=== PATIENT | male | born 1995 | race Caucasian/White ===

== ENCOUNTER 2016-05-26 08:46 | Outpatient (CLI) | payer BC | END 2016-05-26 23:59 | DX: N39.0 Urinary tract infection, site not specified (principal); Z11.3 Encounter for screening for infections with a predominantly sexual mode of transmission ==

== ENCOUNTER 2017-01-25 21:17 | Outpatient (CLI) | payer OTHER, BC | END 2017-01-25 21:18 | disposition EMS.NT | LOC: EMS 21:17 | PROVIDERS: ATTEND Surgery | DX: R51 Headache (principal); V48.5XXA Car driver injured in noncollision transport accident in traffic accident, initial encounter; Y92.413 State road as the place of occurrence of the external cause ==

== ENCOUNTER 2017-01-25 22:06 | Emergency (ER) | payer OTHER, BC ==
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
[2017-01-25] MEDS ORDERED: ACETAMINOPHEN 325 MG TABLET PO STA (22:32)
[2017-01-25] MEDS ORDERED: TETANUS/DIPHTHERIA/PERTUSSIS 0.5 ML SYRINGE IM ONE ×2 (22:32→23:06)
[2017-01-25] MEDS ORDERED: ACETAMINOPHEN 325 MG TABLET PO ONE (23:06)
--- NOTE | 2017-01-25 23:20 | CT Preliminary Report ---
Exam: CT HEAD W/O IMPRESSION: There is a small, well-circumscribed region of CSF density within the right frontal lobe white matter, this likely represents a prominent perivascular space, typically of no clinical signifi cance.. There is an area of cortical and subcortical hypodensity involving the left inferior frontal gyrus, t his measures at most 2 cm in diameter. Given the clinical history, this may represent a nonhemorrhagi c contusion. RADIA The above findings were discussed with Dr. Hsieh by Dr. Yash Esteban at 23:18 hrs on 01/25/17. SITE ID: [id number]
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
[2017-01-25] MEDS ORDERED: IBUPROFEN 600 MG TABLET PO STA (23:37)
[2017-01-25 23:47] VITALS: BP 156/90
== END 2017-01-25 23:46 | disposition home or self-care (01) ==
LOC: ED 22:06
DX: S01.01XA Laceration without foreign body of scalp, initial encounter (principal); V47.5XXA Car driver injured in collision with fixed or stationary object in traffic accident, initial encounter; Y92.410 Unspecified street and highway as the place of occurrence of the external cause; Z23 Encounter for immunization; E10.9 Type 1 diabetes mellitus without complications
CPT/HCPCS: 12002; 70450; 90471; 90715; 99283; 99284; A9270

== ENCOUNTER 2018-09-25 23:53 | Emergency (ER) | payer BC ==
--- NOTE | 2018-09-26 00:43 | XRAY Report ---
Reason: GLF, pain with ROM Procedure Date: 09/26/2018 Accession Number: [id number] / [id number] Procedure: XR - Wrist 4 View LT CPT Code: FULL RESULT: EXAM: LEFT WRIST RADIOGRAPHY EXAM DATE: 09/26/2018 12:19 AM. CLINICAL HISTORY: Ground level fall, pain with range of motion. COMPARISON: None. TECHNIQUE: 4 views. FINDINGS: Bones and joints: Scaphoid appears at least subluxed with abnormal articulation with the lunate and possibly distally as well. No fracture is visualized in the wrist. Soft Tissues: Soft tissue swelling. IMPRESSION: Scaphoid appears at least subluxed with abnormal articulation with the lunate and possibly distally as well. No fracture is visualized in the wrist. RADIA ADDENDUM: 09/26/18 02:35 Nondisplaced fracture of the radial styloid seen on CT is barely visualized in retrospect on plain film.
--- NOTE | 2018-09-26 01:20 | ED Physician Documentation ---
PD HPI UPPER EXT INJURY - Stated complaint Stated Complaint: HAND INJ - Chief complaint Chief Complaint: Ext Problem - History obtained from History obtained from: Patient - History of Present Illness Location: Left, Wrist Type of injury: Fall Timing - onset: Enter time (19:00), Today Timing - details: Abrupt onset Pain level now: 2 Improved by: Rest, Immobilization Worsened by: Moving, Palpating Associated symptoms: Swelling. No: Weakness, Numbness Similar symptoms before: Has not had sx before Recently seen: Not recently seen - Additonal information Additional information: at approximately 7 PM tonight, patient fell off pogo stick; he fell onto outstretched left upper extremity and c/o sudden onset left wrist pain. He is left hand dominant. Review of Systems Skin: denies: Abrasion (s), Laceration (s) Musculoskeletal: reports: Joint pain, Joint swelling. denies: Neck pain, Back pain Neurologic: denies: Focal weakness, Numbness PD PAST MEDICAL HISTORY - Past Medical History Past Medical History: Yes Cardiovascular: None Respiratory: None Neuro: None Endocrine/Autoimmune: Type 1 diabetes GI: None : None HEENT: None Psych: None Musculoskeletal: None Derm: None - Past Surgical History Past Surgical History: Yes - Present Medications Home Medications: Ambulatory Orders Medication Instructions Recorded Confirmed Insulin Aspart (Vial) [NovoLOG] 10 unit SUBQ ONCE 03/03/13 01/25/17 NIFEdipine [Procardia] 10 mg PO DAILY 09/26/18 09/26/18 - Allergies Allergies/Adverse Reactions: Allergies Allergy/AdvReac Type Severity Reaction Status Date / Time cephalexin monohydrate * Allergy Unknown Unknown Verified 09/26/18 00:02 [From Keflex] erythromycin ethylsuccinate * Allergy Unknown Unknown Verified 09/26/18 00:02 [From Pediazole] sulfisoxazole acetyl * Allergy Unknown Unknown Verified 09/26/18 00:02 [From Pediazole] - Social History Does the pt smoke?: No Smoking Status: Former smoker Does the pt drink ETOH?: No ETOH Use: Beer Does the pt have substance abuse?: No - Immunizations Immunizations are current?: Yes Immunizations: TDAP >10years/unknown - POLST Patient has POLST: No PD ED PE NORMAL - Vitals Vital signs reviewed: Yes - General General: Alert and oriented X 3, No acute distress, Well developed/nourished - Derm Derm: Normal color, Warm and dry - Neuro Neuro: No motor deficit, No sensory deficit PD ED PE EXPANDED - Extremities Extremities: Tenderness (mild tenderness to palpation left wrist, radial aspect), Limited ROM (left wrist), Swelling (left wrist), Sensory intact, Vascular intact. No: Deformity, Bruising, Abrasion, Laceration Results - Vitals Vitals: Vital Signs - 24 hr 09/25/18 09/26/18 23:59 03:37 Temperature 36.2 C L 36.5 C Heart Rate 106 H 111 H Respiratory 18 18 Rate Blood Pressure 162/94 H 147/85 H O2 Saturation 99 98 Oxygen O2 Source Room air - Rads (name of study) left wrist xrays Radiology: Prelim report reviewed, See rad report CT left wrist Radiology: Prelim report reviewed, See rad report Procedures - Splint (location) Upper extremity left Splint applied by: Tech Type of splint: Fiberglass, Short arm Other: Patient tolerated well, No complications, Neurovascular intact, Good alignment, Sling provided PD MEDICAL DECISION MAKING - ED course Complexity details: reviewed results, re-evaluated patient, considered differential, d/w patient ED course: xrays interpreted by radiologist as scaphoid abnormality in its articulation with lunate and possibly distally as well. I discussed this result with Dr. Schultz (talent acquisition consultant orthopedic surgery); he recommends CT scan and thus this was also performed. CT reveals no abnormality of carpal bones, but it also shows a nondisplaced intra-articular distal left radial epiphyseal fracture at the base of the radial styloid with minimal depression of the fracture. Departure - Departure Disposition: 01 Home, Self Care Clinical Impression: Distal radial fracture Condition: Good Instructions: ED Sling, ED Splint Care Fiberglass, ED Fx Wrist General Follow-Up: Gil Schultz MD [Provider Admit Priv/Credential] - Forms: Activity restrictions Discharge Date/Time: 09/26/18 03:38
--- NOTE | 2018-09-26 02:36 | CT Report ---
Reason: left wrist xrays abnormal Procedure Date: 09/26/2018 Accession Number: [id number] / [id number] Procedure: CT - UPPER EXTREMITY WO - LT CPT Code: FULL RESULT: EXAM: LEFT WRIST CT WITHOUT CONTRAST EXAM DATE: 09/26/2018 02:08 AM. CLINICAL HISTORY: Left wrist x-rays abnormal. Left wrist pain, injury. COMPARISON: WRIST 4 VIEW LT 09/26/2018 12:13 AM. TECHNIQUE: Thin-section axial images were acquired of the wrist without contrast. Post-processing: Coronal and sagittal reformats. Other: None. In accordance with CT protocol optimization, one or more of the following dose reduction techniques were utilized for this exam: automated exposure control, adjustment of mA and/or KV based on patient size, or use of iterative reconstructive technique. FINDINGS: Bones: Nondisplaced intra-articular distal left radial epiphyseal fracture at the base of the radial styloid. Minimal depression of the fracture. No other wrist fracture seen. Joints: No malalignment of the wrist. No scaphoid dislocation, presumably artifact on plain film unless relocating. Musculature: Normal. No fatty atrophy. Other: Swelling. IMPRESSION: 1. Nondisplaced intra-articular distal left radial epiphyseal fracture at the base of the radial styloid. 2. No malalignment the wrist. No scaphoid dislocation, presumably artifact on plain film unless relocated before CT. RADIA
[2018-09-26 03:38] VITALS: BP 147/85
== END 2018-09-26 03:38 | disposition home or self-care (01) ==
LOC: ED 23:53
DX: S52.572A Other intraarticular fracture of lower end of left radius, initial encounter for closed fracture (principal); W17.89XA Other fall from one level to another, initial encounter; Y93.89 Activity, other specified; E10.9 Type 1 diabetes mellitus without complications; Z79.4 Long term (current) use of insulin; Z87.891 Personal history of nicotine dependence
CPT/HCPCS: 29125; 99283; 99284

== ENCOUNTER 2019-07-09 19:06 | Emergency (ER) | payer BC ==
[2019-07-09] MEDS ORDERED: BUFFERED LIDOCAINE 10 ML SYRINGE SUBQ STA (19:19)
--- NOTE | 2019-07-09 19:20 | ED Physician Documentation ---
PD HPI UPPER EXT INJURY - Stated complaint Stated Complaint: RT PINKY LAC - Chief complaint Chief Complaint: Laceration - History obtained from History obtained from: Patient (24-year-old gentleman was working on his truck and accidentally cut his right pinky finger with a telephone coin box collector at home just prior to arrival. Tetanus is up-to-date. No other injuries.) Review of Systems Constitutional: reports: Reviewed and negative Eyes: reports: Reviewed and negative Respiratory: reports: Reviewed and negative PD PAST MEDICAL HISTORY - Past Medical History Cardiovascular: None Respiratory: None Neuro: None Endocrine/Autoimmune: Type 1 diabetes GI: None : None HEENT: None Psych: None Musculoskeletal: None Derm: None - Past Surgical History Past Surgical History: Yes - Present Medications Home Medications: Ambulatory Orders Medication Instructions Recorded Confirmed Insulin Aspart (Vial) [NovoLOG] 10 unit SUBQ ONCE 03/03/13 01/25/17 NIFEdipine [Procardia] 10 mg PO DAILY 09/26/18 09/26/18 - Allergies Allergies/Adverse Reactions: Allergies Allergy/AdvReac Type Severity Reaction Status Date / Time cephalexin monohydrate * Allergy Unknown Unknown Verified 07/09/19 19:14 [From Keflex] erythromycin ethylsuccinate * Allergy Unknown Unknown Verified 07/09/19 19:14 [From Pediazole] sulfisoxazole acetyl * Allergy Unknown Unknown Verified 07/09/19 19:14 [From Pediazole] - Social History Does the pt smoke?: No Smoking Status: Former smoker Does the pt drink ETOH?: No Does the pt have substance abuse?: No - Immunizations Immunizations are current?: Yes Immunizations: TDAP >10years/unknown - POLST Patient has POLST: No PD ED PE NORMAL - Vitals Vital signs reviewed: Yes - General General: Alert and oriented X 3, No acute distress - Extremities Extremities: Other (On the palmar side of the right pinky finger there is a 1 cm laceration just distal to the DIP joint. Flexor tendon strength is normal, normal sensation and cap refill of the tip.) - Neuro Neuro: Alert and oriented X 3, Normal speech Results - Vitals Vitals: Vital Signs - 24 hr 07/09/19 19:11 Temperature 36.5 C Oxygen O2 Source Room air Procedures - Laceration (location) R pinky Length in cm: 1 Wound type: Linear Neurovascular status: Sensory intact, Motor intact, Vascular intact Anesthesia: Lidocaine 1%, With bicarb (digitial block) Wound Preparation: Chlorhexadine, Irrigated copiously NS Skin layer closure: Nylon, Size #-0 - enter number (5-0), Sutures - enter # (4) Other: Tetanus UTD Complexity: Simple Departure - Departure Disposition: 01 Home, Self Care Clinical Impression: Laceration of right little finger Qualifiers: Encounter type: initial encounter Damage to nail status: without damage Foreign body presence: without foreign body Qualified Code(s): S61.216A - Laceration without foreign body of right little finger without damage to nail, initial encounter Condition: Good Record reviewed to determine appropriate education?: Yes Instructions: ED Laceration Hand Comments: Come back for any signs of infection which would include: Redness, swelling, drainage, increased pain, or fevers. You can wash it soap and water. Keep it covered and moist with bacitracin ointment which is available over the counter; avoid neosporin. Follow-up with your physician in 10-14 days for suture removal.
[2019-07-09] MEDS ORDERED: BACITRACIN ZINC OINT 1 PACKET TOP STA (19:45)
[2019-07-09] MEDS ORDERED: BACITRACIN ZINC OINT 1 PACKET TOP ONE (19:47)
== END 2019-07-09 19:52 | disposition home or self-care (01) ==
LOC: ED 19:06
DX: S61.216A Laceration without foreign body of right little finger without damage to nail, initial encounter (principal); W27.8XXA Contact with other nonpowered hand tool, initial encounter; Y93.89 Activity, other specified; Y99.8 Other external cause status; Z87.891 Personal history of nicotine dependence
CPT/HCPCS: 12001; 99281; 99282; A9270

== ENCOUNTER 2019-08-14 18:03 | Emergency (ER) | payer BC ==
[2019-08-14 18:14] VITALS: BP 158/97
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
[2019-08-14] MEDS ORDERED: BACITRACIN ZINC OINT 1 PACKET TOP STA (19:08)
== END 2019-08-14 19:35 | disposition home or self-care (01) ==
LOC: ED 18:03
DX: S70.312A Abrasion, left thigh, initial encounter (principal); S30.810A Abrasion of lower back and pelvis, initial encounter; V28.0XXA Motorcycle driver injured in noncollision transport accident in nontraffic accident, initial encounter; Y92.410 Unspecified street and highway as the place of occurrence of the external cause; E10.9 Type 1 diabetes mellitus without complications
CPT/HCPCS: 99282

== ENCOUNTER 2020-12-31 09:46 | Outpatient (CLI) | payer BC | END 2020-12-31 09:47 | disposition EMS.NT | LOC: EMS 09:46 | DX: R56.9 Unspecified convulsions (principal) ==

== ENCOUNTER 2020-12-31 10:44 | Emergency (ER) | payer BC ==
[2020-12-31 11:21] LABS: BASOPHILS # (AUTO) 0.1 10^3/uL (0.0-0.1); BASOPHILS % (AUTO) 0.9 %; EOSINOPHILS # (AUTO) 0.1 10^3/uL (0.0-0.7); EOSINOPHILS % (AUTO) 1.4 %; HCT - HEMATOCRIT 48.5 % (42.0-52.0); HGB - HEMOGLOBIN 16.5 g/dL (14.0-18.0); LYMPHOCYTES # (AUTO) 0.8 10^3/uL (1.5-3.5); LYMPHOCYTES % (AUTO) 11.8 %; MEAN CORPUSCULAR HEMOGLOBIN 31.7 pg (27.0-31.0); MEAN CORPUSCULAR VOLUME 93.3 fL (80.0-94.0); MEAN PLATELET VOLUME 8.7 fL (7.4-11.4); MONOCYTES # (AUTO) 0.6 10^3/uL (0.0-1.0); NEUTROPHILS # (AUTO) 4.9 10^3/uL (1.5-6.6); NEUTROPHILS % (AUTO) 75.1 %; PLT - PLATELET COUNT 207 10^3/uL (130-450); RED CELL DISTRIBUTION WIDTH 12.4 % (12.0-15.0); WHITE BLOOD COUNT 6.5 x10^3/uL (4.8-10.8)
[2020-12-31 11:31] LABS: ALBUMIN 4.4 g/dL (3.2-5.5); BILIRUBIN,TOTAL 1.2 mg/dL (0.2-1.0); CALCIUM 9.3 mg/dL (8.5-10.3); CREATININE 0.9 mg/dL (0.6-1.2); POTASSIUM 4.4 mmol/L (3.5-5.0); TOTAL PROTEIN 8.6 g/dL (6.7-8.2)
[2020-12-31 11:37] LABS: BILIRUBIN,URINE NEGATIVE (NEGATIVE); GLUCOSE, URINE (UA) NEGATIVE (NEGATIVE); KETONES,URINE (UA) TRACE mg/dL (NEGATIVE); LEUKOCYTE ESTERASE, URINE NEGATIVE (NEGATIVE); NITRITE,URINE NEGATIVE (NEGATIVE); OCCULT BLOOD,URINE SMALL (NEGATIVE); PROTEIN,URINE TRACE mg/dL (NEGATIVE); UROBILINOGEN,URINE 0.2 (NORMAL) E.U./dL (NORMAL)
[2020-12-31 11:42] LABS: BACTERIA,URINE None Seen /HPF (None Seen); CLARITY,URINE CLEAR (CLEAR); RBC,URINE 0-5 /HPF (0-5); SQUAMOUS EPITHELIAL CELL,UR NONE SEEN (<= Few); WBC,URINE 0-3 /HPF (0-3)
[2020-12-31] MEDS ORDERED: LORazepam 2 MG/ML VIAL ONE (11:46)
[2020-12-31] MEDS ORDERED: LORazepam 2 MG/ML VIAL IVP STA (11:47)
[2020-12-31] MEDS ORDERED: THIAMINE INJ 100 MG, MAGNESIUM SULFATE 2 GM, MULTIVITAMIN 10 ML in SODIUM CHLORIDE 0.9%... IV ONE (11:49)
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
[2020-12-31 11:54] LABS: MUDS CUTOFF CONCENTRATIONS CUTOFF CONC BELOW:
[2020-12-31 12:06] LABS: AMPHETAMINE SCREEN,URINE NEGATIVE (NEGATIVE); BARBITURATE SCREEN,UR NEGATIVE (NEGATIVE); BENZODIAZEPINES SCREEN, URINE NEGATIVE (NEGATIVE); COCAINE SCREEN URINE NEGATIVE (NEGATIVE); METHADONE SCREEN, URINE NEGATIVE (NEGATIVE); METHAMPHETAMINES SCREEN, URINE NEGATIVE (NEGATIVE); OPIATE SCREEN, URINE NEGATIVE (NEGATIVE); OXYCODONE SCREEN, URINE NEGATIVE (NEGATIVE); PROPOXYPHENE SCREEN, URINE NEGATIVE (NEGATIVE); THC CANNABINOID SCREEN, URINE NEGATIVE (NEGATIVE); TRICYCLIC ANTIDEPRESSANT,URINE NEGATIVE (NEGATIVE)
--- NOTE | 2020-12-31 12:48 | CT Report ---
PROCEDURE: HEAD WO INDICATIONS: Seizure TECHNIQUE: Noncontrast 4.5 mm thick angled axial sections acquired from the foramen magnum to the vertex. For r adiation dose reduction, the following was used: automated exposure control, adjustment of mA and/or kV according to patient size. COMPARISON: None. FINDINGS: BRAIN PARENCHYMA: 2.7 cm slightly hypoattenuating mass in the left frontoparietal region with surroun ding vasogenic edema. 1 cm hypoattenuating area in the right stearns radiata, which may reflect prior infarct or prominent p erivascular space. No acute intracranial hemorrhage or abnormal fluid collection. The density in the larger dural venous sinuses is grossly normal. VENTRICLES: Effacement of the left frontal horn. BONES/SINUSES: The skull base and calvarium demonstrate no acute abnormality. The paranasal sinuses a nd mastoid air cells are well aerated. 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 Consider postcontrast magnetic resonance imaging for further evaluation as well as patient's medical history. Reviewed by: Murphy Adkins MD on 12/31/2020 12:46 PM PDT Approved by: Murphy Adkins MD on 12/31/2020 12:46 PM PDT Station ID: [id number]
--- NOTE | 2020-12-31 12:55 | XRAY Report ---
PROCEDURE: Shoulder 3 View LT INDICATIONS: seizure shoulder pain TECHNIQUE: 3 views of the shoulder were acquired. COMPARISON: None. FINDINGS: BONES: No acute, displaced fracture or dislocation. The glenohumeral and acromioclavicular joint spac es are maintained. SOFT TISSUES: No focal abnormality or appreciable pneumothorax. IMPRESSION: 1.No acute osseous abnormality. Reviewed by: Murphy Adkins MD on 12/31/2020 12:53 PM PDT Approved by: Murphy Adkins MD on 12/31/2020 12:53 PM PDT Station ID: [id number]
[2020-12-31] MEDS ORDERED: levETIRAcetam INJ 500 MG in SODIUM CHLORIDE 0.9% 100ML 100 ML IV STA (13:55)
[2020-12-31] MEDS ORDERED: DEXAMETHASONE 10 MG/ML VIAL IVP STA (13:55)
[2020-12-31] MEDS ORDERED: KETOROLAC 30 MG/ML VIAL IVP STA (14:13)
[2020-12-31 18:12] VITALS: BP 156/90
== END 2020-12-31 20:50 | disposition short-term general hospital (02) ==
LOC: ED 10:44
DX: S01.552A Open bite of oral cavity, initial encounter (principal); S46.912A Strain of unspecified muscle, fascia and tendon at shoulder and upper arm level, left arm, initial encounter; X58.XXXA Exposure to other specified factors, initial encounter; R22.0 Localized swelling, mass and lump, head; R56.9 Unspecified convulsions; E10.9 Type 1 diabetes mellitus without complications; Z79.4 Long term (current) use of insulin; Z20.822 Contact with and (suspected) exposure to COVID-19
CPT/HCPCS: 36415; 70450; 73030; 80053; 80306; 80320; 81001; 83690; 85025; 87635; 96365; 96367; 96375; 99285; J2060; J3411; 81003; 87086

== ENCOUNTER 2020-12-31 20:43 | Outpatient (CLI) | payer BC | END 2020-12-31 20:44 | disposition short-term general hospital (02) | LOC: EMS 20:43 | PROVIDERS: ATTEND Emergency Medicine | DX: D49.6 Neoplasm of unspecified behavior of brain (principal); R56.9 Unspecified convulsions | CPT/HCPCS: A0425; A0428 ==

== ENCOUNTER 2021-07-22 12:07 | Outpatient (CLI) | payer OTHER | END 2021-07-22 12:08 | disposition critical access hospital (66) | LOC: EMS 12:07 | DX: R56.9 Unspecified convulsions (principal); M25.512 Pain in left shoulder; W07.XXXA Fall from chair, initial encounter; Y92.009 Unspecified place in unspecified non-institutional (private) residence as the place of occurrence of the external cause | CPT/HCPCS: A0425; A0427 ==

== ENCOUNTER 2021-07-22 12:08 | Emergency (ER) | payer BC, OTHER ==
[2021-07-22] MEDS ORDERED: SODIUM CHLORIDE 0.9% 1,000 ML IV STA (12:27)
[2021-07-22 12:41] LABS: BASOPHILS % (AUTO) 0.8 %; EOSINOPHILS # (AUTO) 0.2 10^3/uL (0.0-0.7); EOSINOPHILS % (AUTO) 3.6 %; HCT - HEMATOCRIT 45.6 % (42.0-52.0); HGB - HEMOGLOBIN 16.2 g/dL (14.0-18.0); LYMPHOCYTES # (AUTO) 0.6 10^3/uL (1.5-3.5); LYMPHOCYTES % (AUTO) 11.5 %; MEAN CORPUSCULAR HEMOGLOBIN 31.5 pg (27.0-31.0); MEAN CORPUSCULAR HGB CONC 35.5 g/dL (32.0-36.0); MEAN CORPUSCULAR VOLUME 88.5 fL (80.0-94.0); MONOCYTES # (AUTO) 0.6 10^3/uL (0.0-1.0); MONOCYTES % (AUTO) 12.5 %; NEUTROPHILS # (AUTO) 3.6 10^3/uL (1.5-6.6); PLT - PLATELET COUNT 204 10^3/uL (130-450); RED BLOOD COUNT 5.15 10^6/uL (4.70-6.10); RED CELL DISTRIBUTION WIDTH 13.5 % (12.0-15.0)
[2021-07-22 12:52] LABS: LACTIC ACID, VENOUS 2.4 mmol/L (0.5-2.2)
[2021-07-22 12:53] LABS: ALBUMIN 4.5 g/dL (3.2-5.5); ALBUMIN/GLOBULIN RATIO 1.5 (1.0-2.2); BILIRUBIN,TOTAL 0.7 mg/dL (0.2-1.0); CALCIUM 9.6 mg/dL (8.5-10.3); CREATININE 0.9 mg/dL (0.6-1.2); POTASSIUM 5.4 mmol/L (3.5-5.0); TOTAL PROTEIN 7.5 g/dL (6.7-8.2)
[2021-07-22] MEDS ORDERED: levETIRAcetam INJ 1,000 MG in SODIUM CHLORIDE 0.9% 100ML 100 ML IV STA (13:01)
[2021-07-22 13:03] LABS: BILIRUBIN,URINE NEGATIVE (NEGATIVE); GLUCOSE, URINE (UA) >=1000 mg/dL (NEGATIVE); KETONES,URINE (UA) TRACE mg/dL (NEGATIVE); LEUKOCYTE ESTERASE, URINE NEGATIVE (NEGATIVE); NITRITE,URINE NEGATIVE (NEGATIVE); OCCULT BLOOD,URINE TRACE-INTA (NEGATIVE); PH,URINE 6.5 PH (5.0-7.5); PROTEIN,URINE TRACE mg/dL (NEGATIVE); UROBILINOGEN,URINE 0.2 (NORMAL) E.U./dL (NORMAL)
--- NOTE | 2021-07-22 13:03 | ED Physician Documentation ---
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 The patient recalls that he has not taken his keppra for the past 2 days. Feels like he just was feeling well and too busy and forgot. He indicates that he usually takes his medications on time and only misses a dose about once per month . Review of Systems Constitutional: denies: Fever Eyes: denies: Decreased vision Ears: denies: Ear pain Nose: denies: Rhinorrhea / runny nose, Congestion Throat: denies: Sore throat Cardiac: denies: Chest pain / pressure, Palpitations Respiratory: denies: Dyspnea, Cough GI: denies: Abdominal Pain, Nausea, Vomiting, Constipation, Diarrhea : denies: Dysuria, Frequency PD PAST MEDICAL HISTORY - Past Medical History Past Medical History: Yes Cardiovascular: None Respiratory: None Neuro: Seizure disorder Endocrine/Autoimmune: Type 1 diabetes GI: None : None HEENT: None Psych: None Musculoskeletal: None Derm: None - Past Surgical History Past Surgical History: Yes Neuro: Craniotomy - Present Medications Home Medications: Ambulatory Orders Medication Instructions Recorded Confirmed Insulin Aspart (Vial) [NovoLOG] 10 unit SUBQ ONCE 03/03/13 12/31/20 NIFEdipine [Procardia] 10 mg PO DAILY 09/26/18 09/26/18 - Allergies Allergies/Adverse Reactions: Allergies Allergy/AdvReac Type Severity Reaction Status Date / Time cephalexin monohydrate * Allergy Unknown Unknown Verified 07/22/21 12:21 [From Keflex] erythromycin ethylsuccinate * Allergy Unknown Unknown Verified 07/22/21 12:21 [From Pediazole] sulfisoxazole acetyl * Allergy Unknown Unknown Verified 07/22/21 12:21 [From Pediazole] - Social History Does the pt smoke?: No Smoking Status: Never smoker Does the pt drink ETOH?: No Does the pt have substance abuse?: No - Immunizations Immunizations are current?: Yes Immunizations: TDAP >10years/unknown - POLST Patient has POLST: No PD ED PE NORMAL - Vitals Vital signs reviewed: Yes (tachy and hypertensive) - General General: Alert and oriented X 3, No acute distress, Well developed/nourished - HEENT HEENT: Atraumatic, PERRL, EOMI, Ears normal, Pharynx benign, Dentition benign, Other (dry mucous membranes) - Neck Neck: Supple, no meningeal sign, No bony TTP - Cardiac Cardiac: No murmur, Other (tachy to 110) - Respiratory Respiratory: No respiratory distress, Clear bilaterally - Abdomen Abdomen: Soft, Non tender - Back Back: No CVA TTP, No spinal TTP - Derm Derm: Normal color, Warm and dry, No rash - Extremities Extremities: No deformity, No edema - Neuro Neuro: Alert and oriented X 3, 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, No motor deficit, No sensory deficit, Normal speech Eye Opening: Spontaneous Motor: Obeys Commands Verbal: Oriented GCS Score: 15 - Psych Psych: Normal mood, Normal affect Results - Vitals Vitals: Vital Signs - 24 hr 07/22/21 07/22/21 07/22/21 12:16 12:39 12:51 Temperature 38.2 C H 37.1 C 37.1 C Heart Rate 130 H 127 H Respiratory 22 20 Rate Blood Pressure 154/86 H 149/76 H O2 Saturation 99 100 07/22/21 07/22/21 07/22/21 13:21 13:30 14:00 Temperature 37.0 C Heart Rate 116 H 102 H 108 H Respiratory 16 18 23 Rate Blood Pressure 127/87 H 148/93 H 143/86 H O2 Saturation 100 100 100 Oxygen O2 Source Room air - Labs Labs: Laboratory Tests 07/22/21 07/22/21 07/22/21 12:35 12:35 12:38 WBC 5.0 RBC 5.15 Hgb 16.2 Hct 45.6 MCV 88.5 MCH 31.5 H MCHC 35.5 RDW 13.5 Plt Count 204 MPV 9.0 Neut # (Auto) 3.6 Lymph # (Auto) 0.6 L [place] # (Auto) 0.6 Eos # (Auto) 0.2 Baso # (Auto) 0.0 Absolute Nucleated RBC 0.00 Nucleated RBC % 0.0 Sodium 134 L Potassium 5.4 H Chloride 98 L Carbon Dioxide 23 Anion Gap 13.0 BUN 12 Creatinine 0.9 Estimated GFR (MDRD) 100 Glucose 302 H Lactic Acid 2.4 H Calcium 9.6 Total Bilirubin 0.7 AST 30 ALT 32 Alkaline Phosphatase 50 Total Protein 7.5 Albumin 4.5 Globulin 3.0 Albumin/Globulin Ratio 1.5 Urine Color Urine Clarity Urine pH Ur Specific [place] Urine Protein Urine Glucose (UA) Urine Ketones Urine Occult Blood Urine Nitrite Urine Bilirubin Urine Urobilinogen Ur Leukocyte Esterase Urine RBC Urine WBC Ur Squamous Epith Cells Urine Bacteria Urine Culture Comments Nasal Adenovirus (PCR) Nasal B. parapertussis DNA (PCR) Nasal Coronavir 229E PCR Nasal Coronavir HKU1 PCR Nasal Coronavir NL63 PCR Nasal Coronavir OC43 PCR Nasal Enterovir/Rhinovir PCR Nasal Influenza B PCR Nasal Influenza A PCR Nasal Parainfluen 1 PCR Nasal Parainfluen 2 PCR Nasal Parainfluen 3 PCR Nasal Parainfluen 4 PCR Nasal RSV (PCR) Nasal B.pertussis DNA PCR Nasal C.pneumoniae (PCR) Umair Human Metapneumo PCR Nasal M.pneumoniae (PCR) Nasal SARS-CoV-2 (PCR) 07/22/21 07/22/21 12:38 12:42 WBC RBC Hgb Hct MCV MCH MCHC RDW Plt Count MPV Neut # (Auto) Lymph # (Auto) [place] # (Auto) Eos # (Auto) Baso # (Auto) Absolute Nucleated RBC Nucleated RBC % Sodium Potassium Chloride Carbon Dioxide Anion Gap BUN Creatinine Estimated GFR (MDRD) Glucose Lactic Acid Calcium Total Bilirubin AST ALT Alkaline Phosphatase Total Protein Albumin Globulin Albumin/Globulin Ratio Urine Color YELLOW Urine Clarity CLEAR Urine pH 6.5 Ur Specific [place] 1.020 Urine Protein TRACE Urine Glucose (UA) >=1000 H Urine Ketones TRACE Urine Occult Blood TRACE-INTA Urine Nitrite NEGATIVE Urine Bilirubin NEGATIVE Urine Urobilinogen 0.2 (NORMAL) Ur Leukocyte Esterase NEGATIVE Urine RBC 0-5 Urine WBC 0-3 Ur Squamous Epith Cells NONE SEEN Urine Bacteria None Seen Urine Culture Comments NOT INDICATED Nasal Adenovirus (PCR) NOT DETECTED Nasal B. parapertussis DNA (PCR) NOT DETECTED Nasal Coronavir 229E PCR NOT DETECTED Nasal Coronavir HKU1 PCR NOT DETECTED Nasal Coronavir NL63 PCR NOT DETECTED Nasal Coronavir OC43 PCR NOT DETECTED Nasal Enterovir/Rhinovir PCR NOT DETECTED Nasal Influenza B PCR NOT DETECTED Nasal Influenza A PCR NOT DETECTED Nasal Parainfluen 1 PCR NOT DETECTED Nasal Parainfluen 2 PCR NOT DETECTED Nasal Parainfluen 3 PCR NOT DETECTED Nasal Parainfluen 4 PCR NOT DETECTED Nasal RSV (PCR) NOT DETECTED Nasal B.pertussis DNA PCR NOT DETECTED Nasal C.pneumoniae (PCR) NOT DETECTED Umair Human Metapneumo PCR NOT DETECTED Nasal M.pneumoniae (PCR) NOT DETECTED Nasal SARS-CoV-2 (PCR) NOT DETECTED Procedures - IVC sono (time) 1255 Bedside IVC sono: IVC measures (cm) (0.92), Dehydration (est 2 liter deficit) PD MEDICAL DECISION MAKING - ED course Complexity details: reviewed old records, reviewed results, re-evaluated patient, considered differential, d/w patient, d/w family ED course: 26-year-old male type one diabetic with a 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 The patient recalls not having taken his medications for 2 days and here in the emerge department he is administered Keppra 1000 mg intravenously. I was able to consult with Dr. Conley his neuro oncologist who will recommend further to the patient himself. The patient was found to be dehydrated here in the emergency department on interrogation the infra vena cava and he was administered saline as well. His blood sugar was 300 and he has an a pump in place and a monitor.He was COVID-negative Departure - Departure Disposition: 01 Home, Self Care Clinical Impression: Seizure Condition: Stable Instructions: ED Seizure Recurrent Follow-Up: GRICELDA CONLEY MD, PHD [Physician No Access] - Comments: Dav, today it looks like you have had a seizure after not taking her medications for 2 days. We have given you a loading dose of Keppra 1000 mg intravenously. Today we did find you were a bit dehydrated and your blood sugar is elevated. Do what ever you can to get your blood sugar under control and follow-up with your neurologist as planned. You will get a call from us today or from your neurologist regarding whether to change the dosing of your medication. Discharge Date/Time: 07/22/21 14:29
[2021-07-22 13:06] LABS: CLARITY,URINE CLEAR (CLEAR)
[2021-07-22 13:21] LABS: BACTERIA,URINE None Seen /HPF (None Seen); RBC,URINE 0-5 /HPF (0-5); SQUAMOUS EPITHELIAL CELL,UR NONE SEEN (<= Few); WBC,URINE 0-3 /HPF (0-3)
[2021-07-22 13:34] LABS: CORONAVIRUS 229E-RESP PCR NOT DETECTED; CORONAVIRUS HKU1-RESP PCR NOT DETECTED; CORONAVIRUS NL63-RESP PCR NOT DETECTED; CORONAVIRUS OC43-RESP PCR NOT DETECTED; HUMAN METAPNEUMOVIRUS NOT DETECTED; INFLUENZA A- RESP PCR PANEL NOT DETECTED; RHINOVIRUS/ENTEROVIRUS NOT DETECTED; SARS-CoV-2 -RESP PCR PANEL NOT DETECTED
[2021-07-22 13:35] LABS: B. PARAPERTUSSIS- RESP PCR PAN NOT DETECTED; B. PERTUSSIS- RESP PCR PANEL NOT DETECTED; C. PNEUMONIAE- RESP PCR PANEL NOT DETECTED; INFLUENZA B - RESP PCR PANEL NOT DETECTED; M. PNEUMONIAE- RESP PCR PANEL NOT DETECTED; PARAINFLUENZA VIRUS 1 NOT DETECTED; PARAINFLUENZA VIRUS 2 NOT DETECTED; PARAINFLUENZA VIRUS 3 NOT DETECTED; PARAINFLUENZA VIRUS 4 NOT DETECTED; RSV- RESP PCR PANEL NOT DETECTED
[2021-07-22 14:06] VITALS: BP 143/86
== END 2021-07-22 14:29 | disposition home or self-care (01) ==
LOC: EDUNIT# → ED 12:08
DX: R56.9 Unspecified convulsions (principal); E10.649 Type 1 diabetes mellitus with hypoglycemia without coma; Z96.41 Presence of insulin pump (external) (internal); Z79.4 Long term (current) use of insulin
CPT/HCPCS: 36415; 80053; 80177; 81001; 83605; 85025; 87040; 87086; 87633; 96365; 99283

== ENCOUNTER 2022-07-16 13:58 | Emergency (ER) | payer MEDICAID, OTHER ==
[2022-07-16 15:01] LABS: BASOPHILS # (AUTO) 0.1 10^3/uL (0.0-0.1); BASOPHILS % (AUTO) 0.8 %; HCT - HEMATOCRIT 46.4 % (42.0-52.0); HGB - HEMOGLOBIN 15.8 g/dL (14.0-18.0); LYMPHOCYTES # (AUTO) 0.6 10^3/uL (1.5-3.5); LYMPHOCYTES % (AUTO) 8.8 %; MEAN CORPUSCULAR HEMOGLOBIN 31.4 pg (27.0-31.0); MEAN CORPUSCULAR HGB CONC 34.1 g/dL (32.0-36.0); MEAN CORPUSCULAR VOLUME 92.2 fL (80.0-94.0); MEAN PLATELET VOLUME 8.6 fL (7.4-11.4); MONOCYTES # (AUTO) 0.7 10^3/uL (0.0-1.0); MONOCYTES % (AUTO) 11.1 %; NEUTROPHILS % (AUTO) 78.8 %; PLT - PLATELET COUNT 153 10^3/uL (130-450); RED BLOOD COUNT 5.03 10^6/uL (4.70-6.10); RED CELL DISTRIBUTION WIDTH 12.8 % (12.0-15.0); WHITE BLOOD COUNT 6.4 x10^3/uL (4.8-10.8)
[2022-07-16 15:12] LABS: ALBUMIN 4.5 g/dL (3.2-5.5); ALBUMIN/GLOBULIN RATIO 1.4 (1.0-2.2); BILIRUBIN,TOTAL 0.7 mg/dL (0.2-1.0); CALCIUM 9.7 mg/dL (8.5-10.3); CREATININE 0.9 mg/dL (0.6-1.2); POTASSIUM 4.2 mmol/L (3.5-5.0); TOTAL PROTEIN 7.8 g/dL (6.7-8.2)
--- NOTE | 2022-07-16 17:20 | ED Physician Documentation ---
History of Present Illness - Stated complaint Stated Complaint: SEIZURE - Chief complaint Chief Complaint: Neuro - Additonal information Additional information: 27-year-old male presents emergency department for evaluation after a witnessed seizure. He reports that he was not feeling well this morning took his usual dose of Keppra 750 mg and then threw up. He decided to sit on the couch and was watching TV when he did have a seizure that lasted several minutes. He was postictal for about 15 minutes before he returned to his normal level of consciousness. This patient does have a history of an astrocytoma status post resection. As a consequence he has developed a seizure disorder and is currently taking Keppra 750 mg twice daily. The last time he had a seizure was in November 2021. At that time evaluated him in the ER. I did repeat his CT scan at that time which showed no evidence of recurrence of tumor. I did noted that time that his liver function test were mildly elevated with an AST ALT in the 90s. He is advised to follow with his PCP and neurologist at [facility]. Patient states he has been stressed recently as well as dehydrated because of the heat. He has been drinking a little bit but nothing to which she feels is excess Review of Systems Constitutional: denies: Fever Ears: reports: Reviewed and negative Throat: reports: Reviewed and negative Cardiac: reports: Reviewed and negative Respiratory: reports: Reviewed and negative GI: reports: Reviewed and negative : reports: Reviewed and negative Neurologic: reports: Seizure PD PAST MEDICAL HISTORY - Past Medical History Cardiovascular: None Respiratory: None Neuro: Seizure disorder Endocrine/Autoimmune: Type 1 diabetes GI: None : None HEENT: None Psych: None Musculoskeletal: None Derm: None - Past Surgical History Past Surgical History: Yes Neuro: Craniotomy - Present Medications Home Medications: Ambulatory Orders Medication Instructions Recorded Confirmed Insulin Lispro [Humalog] 10 unit SUBQ ONCE 07/16/22 07/16/22 Levetiracetam [Keppra] 750 mg PO BID 07/16/22 07/16/22 - Allergies Allergies/Adverse Reactions: Allergies Allergy/AdvReac Type Severity Reaction Status Date / Time cephalexin monohydrate * Allergy Unknown Unknown Verified 07/16/22 14:00 [From Keflex] erythromycin ethylsuccinate * Allergy Unknown Unknown Verified 12/16/21 13:31 [From Pediazole] sulfisoxazole acetyl * Allergy Unknown Unknown Verified 12/16/21 13:31 [From Pediazole] - Social History Does the pt smoke?: No Smoking Status: Never smoker Does the pt drink ETOH?: No Does the pt have substance abuse?: No - Immunizations Immunizations are current?: Yes Immunizations: TDAP >10years/unknown - POLST Patient has POLST: No PD ED PE NORMAL - General General: Alert and oriented X 3, No acute distress - Neck Neck: Supple, no meningeal sign - Cardiac Cardiac: RRR, No murmur - Respiratory Respiratory: No respiratory distress - Abdomen Abdomen: Normal bowel sounds, Soft - Back Back: No CVA TTP - Derm Derm: Normal color, Warm and dry - Extremities Extremities: No deformity - Neuro Neuro: Alert and oriented X 3, valet service attendant 2-12 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, No motor deficit, Normal speech Eye Opening: Spontaneous Motor: Obeys Commands Verbal: Oriented GCS Score: 15 Results - Vitals Vitals: Vital Signs - 24 hr 07/16/22 14:00 Temperature 37.1 C Heart Rate 100 Respiratory 18 Rate Blood Pressure 153/104 H O2 Saturation 100 Oxygen O2 Source Room air - Labs Labs: Laboratory Tests 07/16/22 07/16/22 14:55 14:55 WBC 6.4 RBC 5.03 Hgb 15.8 Hct 46.4 MCV 92.2 MCH 31.4 H MCHC 34.1 RDW 12.8 Plt Count 153 MPV 8.6 Neut # (Auto) 5.0 Lymph # (Auto) 0.6 L [place] # (Auto) 0.7 Eos # (Auto) 0.0 Baso # (Auto) 0.1 Absolute Nucleated RBC 0.00 Nucleated RBC % 0.0 Sodium 136 Potassium 4.2 Chloride 96 L Carbon Dioxide 27 Anion Gap 13.0 BUN 9 Creatinine 0.9 Estimated GFR (MDRD) 100 Glucose 149 H Calcium 9.7 Total Bilirubin 0.7 AST 221 H ALT 209 H Alkaline Phosphatase 64 Total Protein 7.8 Albumin 4.5 Globulin 3.3 Albumin/Globulin Ratio 1.4 Lipase 35 PD Medical Decision Making - ED course Complexity details: reviewed results, re-evaluated patient, d/w patient ED course: 27-year-old male who has a known history of a seizure disorder after developing an astrocytoma status postresection. He is followed closely by [facility] neurosurgery and neurology. He does admit to misusing alcohol recently. This morning he took his usual Keppra dose of 750 mg but quickly thereafter vomited. After that he did have a witnessed seizure lasting a few minutes on the couch which was followed by about a 15-minute postictal period. Here in the emergency department he presents alert and well-appearing. I discussed with the patient the LFT abnormalities that I note on electrolytes which include AST ALT elevations in the mid 200s. Compared to in November 2021 visit His LFTs were in the mid 90s. The patient does endorse some alcohol misuse but given the ratio of nearly normal AST and ALT elevation I favor medication side effect as a cause for the LFT abnormalities. I did offer to speak with on-call [facility] neurologist to discuss this with the patient but at this time he is requesting to be discharged home. He will speak with his neurologist tomorrow and discuss the abnormal LFTs and if medication change would be warranted. I am advising him to discontinue his use of alcohol as a safety measure. I also request he have his liver function test repeated within the next week. The usual emergent return precautions were discussed for worsening symptoms Departure - Departure Disposition: 01 Home, Self Care Clinical Impression: Seizure, Abnormal LFTs, Alcohol abuse Condition: Stable Record reviewed to determine appropriate education?: Yes Comments: Dav came to the emergency department today because she had a seizure this morning. It appears as though you likely vomited the Keppra dose that you would typically take this morning. You have a known seizure disorder and is okay to have seizures occasionally with epilepsy but the concerning finding that I have for you is that your liver function tests are grossly abnormal. The AST and ALT are in the mid 200s respectively today. These are typically under 50. I do have concern that based on this elevation Keppra could be causing abnormal liver function test. It is possible that drinking could be contributing to this however drinking typically causes a different type of AST/ALT ratio abnormality. I encourage you to discuss very closely with your neurologist whether the Keppra is contributing to your abnormal liver function test and if it should be taken into consideration for a change in antiepileptic medication. Return to the ER if you are having any worsening symptoms I also encourage you to stop drinking and if able have your liver function test repeated within the week
[2022-07-16 18:00] VITALS: BP 152/87
== END 2022-07-16 18:03 | disposition home or self-care (01) ==
LOC: ED 13:58
DX: G40.909 Epilepsy, unspecified, not intractable, without status epilepticus (principal); R79.89 Other specified abnormal findings of blood chemistry; F10.10 Alcohol abuse, uncomplicated; E10.9 Type 1 diabetes mellitus without complications
CPT/HCPCS: 36415; 80053; 83690; 85025; 99283; 99284

== ENCOUNTER 2023-10-26 15:50 | Outpatient (CLI) | payer MEDICAID ==
--- NOTE | 2023-10-26 16:22 | XRAY Report ---
PROCEDURE: Ribs 3V BL INDICATIONS: RIB SPRAIN, POSSIBLE IB FX TECHNIQUE: 2 views of the ribs were acquired. COMPARISON: None. FINDINGS: Bones and chest wall: No fractures or dislocations. No suspicious bony lesions. Overlying soft tis sues appear unremarkable. Lungs and pleura: The visualized lung appears clear. No pleural effusions or pneumothorax are visib le. IMPRESSION: No displaced fracture or pneumothorax. Reviewed by: Bacilio Camp MD on 10/26/2023 4:21 PM PDT Approved by: Bacilio Camp MD on 10/26/2023 4:21 PM PDT Station ID: [id number]
--- NOTE | 2023-10-26 16:22 | XRAY Report ---
PROCEDURE: Thoracic Spine 2V INDICATIONS: RIB SPRAIN, POSSIBLE RIB FX TECHNIQUE: 2 views of the thoracic spine were acquired. COMPARISON: None. FINDINGS: Bones: Mild anterior wedging of the T9 vertebral body. No suspicious bony lesions. 12 pairs of ribs are noted, and appear intact where visualized. Soft tissues: No paravertebral stripe thickening. IMPRESSION: Mild anterior wedging of the T9 vertebral body. Correlate with point tenderness. Reviewed by: Bacilio Camp MD on 10/26/2023 4:20 PM PDT Approved by: Bacilio Camp MD on 10/26/2023 4:20 PM PDT Station ID: [id number]
== END 2023-10-26 15:51 | disposition home or self-care (01) ==
LOC: DI 15:50
PROVIDERS: ATTEND Chiropractor
DX: S23.41XA Sprain of ribs, initial encounter (principal); M48.54XA Collapsed vertebra, not elsewhere classified, thoracic region, initial encounter for fracture